=== PATIENT | female | born 1990 | race Caucasian/White ===

== ENCOUNTER 2018-06-26 10:36 | Emergency (ER) | payer OTHER ==
[2018-06-26] MEDS: HYDROCODONE/APAP (5/325) TAB PO (11:13)
[2018-06-26] MEDS: ONDANSETRON (ODT) 4 MG TAB ODT (11:13)
== END 2018-06-26 13:19 | disposition home or self-care (01) ==
LOC: FTE 13:19
DX: M25.571 Pain in right ankle and joints of right foot (principal)
CPT/HCPCS: 73562; 73610-RT; 73630; 99283-25